=== PATIENT | female | born 1995 | race Hispanic/Latino ===

== ENCOUNTER 2021-03-12 18:12 | Emergency (ER) | payer MEDICAID ==
[2021-03-12 18:28] VITALS: BP 125/73
[2021-03-12] MEDS ORDERED: CYCLOBENZAPRINE 10 MG TAB PO ONE (21:41)
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
== END 2021-03-12 22:43 | disposition home or self-care (01) ==
LOC: ED 18:12
DX: M62.838 Other muscle spasm (principal); M54.2 Cervicalgia; Z79.1 Long term (current) use of non-steroidal anti-inflammatories (NSAID); Z79.899 Other long term (current) drug therapy
CPT/HCPCS: 99282

== ENCOUNTER 2022-03-28 10:49 | Outpatient (CLI) | payer MEDICAID ==
--- NOTE | 2022-03-28 13:38 | Ultrasound Report ---
ULTRASOUND BIOPHYSICAL PROFILE INDICATION / CLINICAL INFORMATION: well being. COMPARISON: None available. FINDINGS: BREATHING MOVEMENT = 2 GROSS BODY MOVEMENT = 2 TONE = 2 QUALITATIVE AMNIOTIC FLUID VOLUME = 2 TOTAL BIOPHYSICAL SCORE = 03/31 PRESENTATION: Transverse. Head to maternal right HEART RATE (beats per minute): 149 IMPRESSION: 1. biophysical profile = 03/31 Signer Name: Adama Plata MD Signed: 03/28/2022 1:34 PM Workstation Name: [id number]
== END 2022-03-28 14:28 | disposition home or self-care (01) ==
LOC: TRG 10:49 → APU 10:53 → TRG 14:28
PROVIDERS: ATTEND Obstetrics & Gynecology
DX: O36.8120 Decreased fetal movements, second trimester, not applicable or unspecified (principal); Z3A.26 26 weeks gestation of pregnancy
CPT/HCPCS: 76819